=== PATIENT | female | born 1960 | race Caucasian/White ===

== ENCOUNTER 2019-10-30 22:47 | Inpatient (IN) ==
[2019-10-30] MEDS ORDERED: Ipratropium/Albuterol Neb 3 ML IH ONE (22:59)
[2019-10-30 23:22] LABS: Basophils # 0.1 K/mcL (0.0-0.2); Basophils % 0.6 %; Eosinophils # 0.5 K/mcL (0.0-0.6); Eosinophils % 3.8 %; Hematocrit 43.9 % (35.3-44.9); Hemoglobin 14.2 g/dL (11.5-15.4); Immature Granulocytes % 0.4 % (0-4); Lymphocytes # 2.2 K/mcL (0.6-4.6); Lymphocytes % 17.8 %; Mean Corpuscular HGB Conc 32.3 g/dL (31.6-35.5); Mean Corpuscular Hemoglobin 28.6 pg (28.0-33.3); Mean Corpuscular Volume 88.3 fL (83.0-100.0); Mean Platelet Volume 10.9 fL (9.4-12.4); Monocytes # 0.8 K/mcL (0.0-1.3); Monocytes % 6.7 %; Neutrophils # 8.7 K/mcL (1.6-8.9); Platelet Count 262 K/mcL (140-400); Red Blood Count 4.97 M/mcL (3.82-4.97); Red Cell Distribution Width 13.6 % (11.5-14.5); Segmented Neutrophils % 70.7 %; White Blood Count 12.2 K/mcL (4.3-11.1)
[2019-10-30 23:32] LABS: INR 1.1
[2019-10-30] MEDS ORDERED: methylPREDNISolone 125 MG/2 ML VIAL IVP ONE (23:37)
[2019-10-30 23:50] LABS: Alanine Aminotransferase 14 Units/L (7-52); Albumin 3.8 g/dL (3.5-5.7); Albumin/Globulin Ratio 1.3 (1.1-2.2); Alkaline Phosphatase 89 Units/L (34-104); Aspartate Amino Transferase 13 Units/L (13-39); BUN/Creatinine Ratio 22 (6-26); Bilirubin,Direct 0.1 mg/dL (0.0-0.2); Bilirubin,Indirect 0.3 mg/dL (0.0-1.0); Bilirubin,Total 0.4 mg/dL (0.3-1.0); Blood Urea Nitrogen 16 mg/dL (8-23); Calcium 8.9 mg/dL (8.6-10.3); Carbon Dioxide 27 mEq/L (23-29); Chloride 104 mEq/L (98-107); Globulin 2.9 g/dL (2.4-3.5); Glucose 156 mg/dL (70-105); Osmolality,Calculated 286 (280-300); Potassium 3.6 mEq/L (3.5-5.1); Sodium 136 mEq/L (136-145); Total Protein 6.7 g/dL (6.4-8.9); eGFR For African Americans > 60 (> 60); eGFR For Non-African Americans > 60 (> 60)
[2019-10-30 23:51] LABS: Troponin I < 0.03 ng/mL (< 0.04)
[2019-10-31] MEDS ORDERED: cefTRIAXone 1,000 MG in Water for inj. (sterile) 10 ML IVP ONE (00:54)
[2019-10-31] MEDS ORDERED: Albuterol 2.5 MG/3 ML NEBULIZER IH PRN (01:20)
[2019-10-31] MEDS ORDERED: Dextrose Gel 15 GM/37.5 ML TUBE PO PRN ×4 (03:13→03:15)
[2019-10-31] MEDS ORDERED: *HR* Dextrose 50 % in Water (Syg) 50 ML SYRINGE IVP PRN ×2 (03:13→03:15)
[2019-10-31] MEDS ORDERED: Naloxone 0.4 MG/ML INJ IVP PRN (03:13)
[2019-10-31] MEDS ORDERED: D5% in Water 1,000 ML IVC PRN ×2 (03:13→03:15)
[2019-10-31] MEDS ORDERED: Ondansetron ODT 4 MG TAB.RAPDIS SL PRN (03:13)
[2019-10-31] MEDS: Ipratropium/Albuterol Neb 3 ML IH SCH ×5 (03:35→22:06)
[2019-10-31 04:02] LABS: Basophils % 0.4 %; Eosinophils % 0.3 %; Hematocrit 42.2 % (35.3-44.9); Hemoglobin 13.4 g/dL (11.5-15.4); Immature Granulocytes % 0.5 % (0-4); Lymphocytes # 0.5 K/mcL (0.6-4.6); Lymphocytes % 4.5 %; Mean Corpuscular HGB Conc 31.8 g/dL (31.6-35.5); Mean Corpuscular Volume 88.3 fL (83.0-100.0); Mean Platelet Volume 11.3 fL (9.4-12.4); Monocytes # 0.1 K/mcL (0.0-1.3); Monocytes % 1.3 %; Platelet Count 266 K/mcL (140-400); Red Blood Count 4.78 M/mcL (3.82-4.97); Red Cell Distribution Width 13.7 % (11.5-14.5); White Blood Count 10.8 K/mcL (4.3-11.1)
[2019-10-31 04:22] LABS: BUN/Creatinine Ratio 19 (6-26); Blood Urea Nitrogen 15 mg/dL (8-23); Calcium 8.8 mg/dL (8.6-10.3); Carbon Dioxide 28 mEq/L (23-29); Chloride 102 mEq/L (98-107); Glucose 266 mg/dL (70-105); Magnesium 2.2 mg/dL (1.6-2.6); Osmolality,Calculated 292 (280-300); Phosphorous 3.1 mg/dL (2.7-4.5); Potassium 3.7 mEq/L (3.5-5.1); Sodium 136 mEq/L (136-145); eGFR For African Americans > 60 (> 60); eGFR For Non-African Americans > 60 (> 60)
[2019-10-31 04:24] LABS: Troponin I < 0.03 ng/mL (< 0.04)
[2019-10-31] MEDS ORDERED: Azithromycin 250 MG TABLET PO SCH (07:45)
[2019-10-31 08:22] LABS: Estimated Average Glucose 148 mg/dl
[2019-10-31] MEDS: Insulin DETEMIR 100 UNIT/ML X5UNITS SQ SCH (09:02)
[2019-10-31] MEDS: Insulin LISPRO 300 UNITS/3 ML VIAL SQ SCH ×3 (09:02→17:24)
[2019-10-31] MEDS: predniSONE 20 MG TABLET PO SCH (09:02)
[2019-10-31] MEDS: Nicotine 14 MG PATCH.TD24 TD SCH ×2 (09:03→16:03)
[2019-10-31] MEDS: levoFLOXacin 750 MG TABLET PO SCH (10:37)
[2019-10-31 11:29] LABS: Bilirubin,Urine Negative (Negative); Blood,Urine Negative (Negative); Clarity,Urine Clear (Clear); Color,Urine Yellow (Yellow); Glucose,Urine (UA) 500 mg/dL (Normal); Ketones,Urine Negative (Negative); Leukocyte Esterase,Urine Negative (Negative); Nitrite,Urine Negative (Negative); PH,Urine 6.5 pH Units (5.0-8.0); Protein,Urine Negative (Neg-Trace); Specific Gravity,Urine 1.014 (1.010-1.025); Urobilinogen,Urine Normal (Normal)
[2019-10-31] MEDS: lisinopriL 20 MG TABLET PO SCH (13:45)
[2019-10-31] MEDS ORDERED: Ibuprofen 400 MG TABLET PO PRN (16:03)
[2019-10-31] MEDS ORDERED: cefTRIAXone 2,000 MG in Water for inj. (sterile) 10 ML IVP SCH (18:00)
[2019-10-31] MEDS ORDERED: NON-FORMULARY MEDICATION 1 EACH EACH (Oxygen 2 L) NS SCH (21:00)
[2019-10-31] MEDS: Budesonide/Formoterol 160/4.5 1 PUFF INH IH SCH ×2 (22:06→23:25)
[2019-11-01] MEDS: Ipratropium/Albuterol Neb 3 ML IH SCH ×4 (03:48→22:20)
[2019-11-01] MEDS: Insulin LISPRO 300 UNITS/3 ML VIAL SQ SCH ×3 (08:28→16:30)
[2019-11-01] MEDS: Nicotine 14 MG PATCH.TD24 TD SCH (08:37)
[2019-11-01] MEDS: lisinopriL 20 MG TABLET PO SCH (08:38)
[2019-11-01] MEDS: levoFLOXacin 750 MG TABLET PO SCH (08:38)
[2019-11-01] MEDS: predniSONE 20 MG TABLET PO SCH (08:38)
[2019-11-01] MEDS: Insulin DETEMIR 100 UNIT/ML X5UNITS SQ SCH (08:39)
[2019-11-01] MEDS: Budesonide/Formoterol 160/4.5 1 PUFF INH IH SCH ×2 (10:22→22:20)
[2019-11-02] MEDS: Ipratropium/Albuterol Neb 3 ML IH SCH ×2 (04:21→10:16)
[2019-11-02 05:35] LABS: Hematocrit 39.7 % (35.3-44.9); Hemoglobin 12.5 g/dL (11.5-15.4); Mean Corpuscular HGB Conc 31.5 g/dL (31.6-35.5); Mean Corpuscular Hemoglobin 28.4 pg (28.0-33.3); Mean Corpuscular Volume 90.2 fL (83.0-100.0); Mean Platelet Volume 11.2 fL (9.4-12.4); Platelet Count 267 K/mcL (140-400); Red Cell Distribution Width 14.1 % (11.5-14.5); White Blood Count 12.5 K/mcL (4.3-11.1)
[2019-11-02 05:55] LABS: BUN/Creatinine Ratio 30 (6-26); Blood Urea Nitrogen 25 mg/dL (8-23); Calcium 8.8 mg/dL (8.6-10.3); Carbon Dioxide 26 mEq/L (23-29); Chloride 106 mEq/L (98-107); Glucose 138 mg/dL (70-105); Osmolality,Calculated 293 (280-300); Potassium 3.7 mEq/L (3.5-5.1); Sodium 138 mEq/L (136-145); eGFR For African Americans > 60 (> 60); eGFR For Non-African Americans > 60 (> 60)
[2019-11-02 06:41] VITALS: BP 113/70
[2019-11-02] MEDS: Insulin LISPRO 300 UNITS/3 ML VIAL SQ SCH (07:57)
[2019-11-02] MEDS: lisinopriL 20 MG TABLET PO SCH (08:22)
[2019-11-02] MEDS: Nicotine 14 MG PATCH.TD24 TD SCH (08:22)
[2019-11-02] MEDS: Insulin DETEMIR 100 UNIT/ML X5UNITS SQ SCH (08:22)
[2019-11-02] MEDS: levoFLOXacin 750 MG TABLET PO SCH (08:22)
[2019-11-02] MEDS: predniSONE 20 MG TABLET PO SCH (08:22)
[2019-11-02] MEDS: Budesonide/Formoterol 160/4.5 1 PUFF INH IH SCH (10:16)
== END 2019-11-02 10:42 | disposition home or self-care (01) | DRG 191 ==
LOC: EMEROOARM 22:47 → 3ANU 22:47 → SUATTDRO 10-31 01:26 → 3ANU 10-31 01:40 → SUATTDRO 11-01 13:05
PROVIDERS: ADMIT Internal Medicine; ATTEND Internal Medicine

== ENCOUNTER 2020-08-13 12:46 | Inpatient (IN) ==
[2020-08-13] MEDS ORDERED: Ondansetron 4 MG/2 ML VIAL IVP ONE (13:10)
[2020-08-13] MEDS ORDERED: Acetaminophen 325 MG TABLET PO ONE (13:10)
[2020-08-13] MEDS ORDERED: levoFLOXacin 750 MG TABLET PO ONE (13:10)
[2020-08-13] MEDS ORDERED: 0.9 % Sodium Chloride 1,000 ML IVC ONE (13:13)
[2020-08-13 14:08] LABS: Hematocrit 42.1 % (35.3-44.9); Hemoglobin 13.4 g/dL (11.5-15.4); Mean Corpuscular HGB Conc 31.8 g/dL (31.6-35.5); Mean Corpuscular Hemoglobin 27.9 pg (28.0-33.3); Mean Corpuscular Volume 87.5 fL (83.0-100.0); Mean Platelet Volume 10.6 fL (9.4-12.4); Platelet Count 267 K/mcL (140-400); Red Blood Count 4.81 M/mcL (3.82-4.97); White Blood Count 23.4 K/mcL (4.3-11.1)
[2020-08-13 14:17] LABS: INR 1.7; Prothrombin Time 18.9 Seconds (9.4-12.1)
[2020-08-13 14:19] LABS: Activated Partial Thrombo Time 31.1 Seconds (26.0-36.0)
[2020-08-13 14:33] LABS: Lymphocytes # 0.7 K/mcL (0.6-4.6); Monocytes # 0.5 K/mcL (0.0-1.3); Neutrophils # 22.2 K/mcL (1.6-8.9); Platelet Estimate Normal (Normal); Reactive Lymphocytes Present (Not Present)
[2020-08-13 14:34] LABS: Anisocytosis 2+ (Not Present)
[2020-08-13 15:01] LABS: Alanine Aminotransferase 17 Units/L (7-52); Albumin 3.8 g/dL (3.5-5.7); Alkaline Phosphatase 73 Units/L (34-104); Aspartate Amino Transferase 14 Units/L (13-39); BUN/Creatinine Ratio 13 (6-26); Bilirubin,Direct 0.3 mg/dL (0.0-0.2); Bilirubin,Indirect 0.7 mg/dL (0.0-1.0); Blood Urea Nitrogen 10 mg/dL (8-23); C-Reactive Protein > 300 mg/L (Less than 10); Calcium 9.1 mg/dL (8.6-10.3); Carbon Dioxide 27 mEq/L (23-29); Chloride 98 mEq/L (98-107); Ferritin 200 ng/mL (10-120); Globulin 3.8 g/dL (2.4-3.5); Glucose 111 mg/dL (70-105); Lactate Dehydrogenase 191 Units/L (140-271); Magnesium 1.8 mg/dL (1.6-2.6); Osmolality,Calculated 284 (280-300); Phosphorous 1.3 mg/dL (2.7-4.5); Potassium 3.3 mEq/L (3.5-5.1); Sodium 137 mEq/L (136-145); Total Protein 7.6 g/dL (6.4-8.9); Troponin I 0.03 ng/mL (< 0.04); eGFR For African Americans > 60 (> 60); eGFR For Non-African Americans > 60 (> 60)
[2020-08-13] MEDS ORDERED: Isovue-370 500 ML BOTTLE IVP ONE (15:28)
[2020-08-13] MEDS ORDERED: Ipratropium/Albuterol Neb 3 ML IH ONE (15:38)
[2020-08-13] MEDS ORDERED: Piperacillin/Tazobactam 3.375 GM in Water for inj. (sterile) 20 ML IVP ONE (16:03)
[2020-08-13] MEDS ORDERED: 0.9 % Sodium Chloride 500 ML IVC ONE (16:09)
[2020-08-13 17:41] LABS: Adenovirus Not Detected (Not Detect); Bordetella Pertussis Not Detected (Not Detect); Chlamydophila pneumoniae Not Detected (Not Detect); Coronavirus 229E Not Detected (Not Detect); Coronavirus HKU1 Not Detected (Not Detect); Coronavirus NL63 Not Detected (Not Detect); Coronavirus OC43 Not Detected (Not Detect); Human Metapneumovirus Not Detected (Not Detect); Human Rhinovirus/Enterovirus Not Detected (Not Detect); Influenza A Subtype 2009 H1 Not Detected (Not Detect); Influenza B Not Detected (Not Detect); Mycoplasma pneumoniae Not Detected (Not Detect); Parainfluenza Virus 1 Not Detected (Not Detect); Parainfluenza Virus 2 Not Detected (Not Detect); Parainfluenza Virus 3 Not Detected (Not Detect); Parainfluenza Virus 4 Not Detected (Not Detect); Respiratory Syncytial Virus Not Detected (Not Detect); SARS-CoV-2 Not Detected (Not Detect)
[2020-08-13] MEDS ORDERED: Azithromycin 500 MG in 0.9 % Sodium Chloride 250 ML IVPB SCH (21:00)
[2020-08-13] MEDS: Ipratropium/Albuterol Neb 3 ML IH SCH (22:51)
[2020-08-13] MEDS ORDERED: *HR* Dextrose 50 % in Water (Vial) 50 ML VIAL IVP PRN (23:24)
[2020-08-13] MEDS ORDERED: Dextrose Gel 15 GM/37.5 ML TUBE PO PRN ×2 (23:24)
[2020-08-13] MEDS ORDERED: D5% in Water 1,000 ML IVC PRN (23:24)
[2020-08-13] MEDS: MethylPREDNISolone 40 MG/ML VIAL IVP SCH (23:41)
[2020-08-14] MEDS: Ipratropium/Albuterol Neb 3 ML IH SCH ×4 (03:37→21:48)
[2020-08-14 04:16] LABS: Basophils % 0.1 %; Hematocrit 36.8 % (35.3-44.9); Immature Granulocytes % 0.8 % (0-4); Lymphocytes # 0.4 K/mcL (0.6-4.6); Lymphocytes % 2.1 %; Mean Corpuscular HGB Conc 31.3 g/dL (31.6-35.5); Mean Corpuscular Volume 89.5 fL (83.0-100.0); Monocytes # 0.4 K/mcL (0.0-1.3); Monocytes % 1.9 %; Neutrophils # 19.1 K/mcL (1.6-8.9); Platelet Count 252 K/mcL (140-400); Red Blood Count 4.11 M/mcL (3.82-4.97); Red Cell Distribution Width 14.4 % (11.5-14.5); Segmented Neutrophils % 95.1 %; White Blood Count 20.1 K/mcL (4.3-11.1)
[2020-08-14 04:19] LABS: Hemoglobin 11.5 g/dL (11.5-15.4)
[2020-08-14 04:36] LABS: Alanine Aminotransferase 12 Units/L (7-52); Albumin 3.2 g/dL (3.5-5.7); Alkaline Phosphatase 61 Units/L (34-104); Aspartate Amino Transferase 11 Units/L (13-39); BUN/Creatinine Ratio 19 (6-26); Bilirubin,Total 0.7 mg/dL (0.3-1.0); Blood Urea Nitrogen 13 mg/dL (8-23); Calcium 8.2 mg/dL (8.6-10.3); Carbon Dioxide 25 mEq/L (23-29); Chloride 104 mEq/L (98-107); Globulin 3.2 g/dL (2.4-3.5); Glucose 89 mg/dL (70-105); Osmolality,Calculated 284 (280-300); Potassium 3.8 mEq/L (3.5-5.1); Sodium 137 mEq/L (136-145); Total Protein 6.4 g/dL (6.4-8.9); eGFR For African Americans > 60 (> 60); eGFR For Non-African Americans > 60 (> 60)
[2020-08-14] MEDS: *HR* Heparin 5,000 UNIT/ML VIAL SQ SCH ×2 (05:19→16:42)
[2020-08-14] MEDS: MethylPREDNISolone 40 MG/ML VIAL IVP SCH ×3 (05:19→16:43)
[2020-08-14 07:21] LABS: Estimated Average Glucose 163 mg/dl; Hemoglobin A1C 7.3 %
[2020-08-14] MEDS: Insulin LISPRO 300 UNITS/3 ML VIAL SUBQ SCH ×4 (07:48→20:12)
[2020-08-14] MEDS: Tiotropium 10 INH DOSE IH SCH (07:57)
[2020-08-14] MEDS ORDERED: Roflumilast [Daliresp] 500 MCG PO SCH (09:00)
[2020-08-14] MEDS ORDERED: levoFLOXacin 500 MG/100 ML 500 MG/100 ML BAG IVPB SCH (09:00)
[2020-08-14] MEDS: lisinopriL 20 MG TABLET PO SCH (09:35)
[2020-08-14 14:10] LABS: Bilirubin,Urine Negative (Negative); Blood,Urine Small (Negative); Clarity,Urine Clear (Clear); Color,Urine Light-Yellow (Yellow); Glucose,Urine (UA) Normal (Normal); Ketones,Urine Trace mg/dL (Negative); Leukocyte Esterase,Urine Negative (Negative); Mucus,Urine Few per lpf (None-Few); Nitrite,Urine Negative (Negative); PH,Urine 6.5 pH Units (5.0-8.0); Protein,Urine Trace mg/dL (Neg-Trace); RBC,Urine 0-3 per hpf (0-3); Specific Gravity,Urine 1.014 (1.010-1.025); Squamous Epithelial Cell,Urine Few per hpf (None-Few); Urobilinogen,Urine Normal (Normal)
[2020-08-14] MEDS: Nicotine 14 MG PATCH.TD24 TD SCH (16:43)
[2020-08-14] MEDS: Insulin DETEMIR 100 UNIT/ML X5UNITS SUBQ SCH (20:12)
[2020-08-14] MEDS: Acetaminophen 325 MG TABLET PO PRN (20:17)
[2020-08-14] MEDS ORDERED: Insulin LISPRO 300 UNITS/3 ML VIAL SUBQ SCH (21:00)
[2020-08-15] MEDS: Ipratropium/Albuterol Neb 3 ML IH SCH ×4 (03:45→22:40)
[2020-08-15] MEDS: *HR* Heparin 5,000 UNIT/ML VIAL SQ SCH ×3 (05:22→21:45)
[2020-08-15] MEDS: MethylPREDNISolone 40 MG/ML VIAL IVP SCH (05:22)
[2020-08-15 07:26] LABS: Basophils % 0.1 %; Hematocrit 33.5 % (35.3-44.9); Hemoglobin 10.7 g/dL (11.5-15.4); Immature Granulocytes % 0.5 % (0-4); Lymphocytes # 0.5 K/mcL (0.6-4.6); Lymphocytes % 3.8 %; Mean Corpuscular HGB Conc 31.9 g/dL (31.6-35.5); Mean Corpuscular Hemoglobin 28.2 pg (28.0-33.3); Mean Corpuscular Volume 88.4 fL (83.0-100.0); Mean Platelet Volume 11.8 fL (9.4-12.4); Monocytes # 0.5 K/mcL (0.0-1.3); Monocytes % 4.3 %; Neutrophils # 11.3 K/mcL (1.6-8.9); Platelet Count 237 K/mcL (140-400); Red Blood Count 3.79 M/mcL (3.82-4.97); Red Cell Distribution Width 14.2 % (11.5-14.5); Segmented Neutrophils % 91.3 %; White Blood Count 12.4 K/mcL (4.3-11.1)
[2020-08-15 07:43] LABS: BUN/Creatinine Ratio 35 (6-26); Blood Urea Nitrogen 24 mg/dL (8-23); Calcium 8.6 mg/dL (8.6-10.3); Carbon Dioxide 25 mEq/L (23-29); Chloride 106 mEq/L (98-107); Glucose 208 mg/dL (70-105); Magnesium 2.4 mg/dL (1.6-2.6); Osmolality,Calculated 294 (280-300); Phosphorous 2.2 mg/dL (2.7-4.5); Potassium 3.5 mEq/L (3.5-5.1); Sodium 137 mEq/L (136-145); eGFR For African Americans > 60 (> 60); eGFR For Non-African Americans > 60 (> 60)
[2020-08-15] MEDS: Insulin LISPRO 300 UNITS/3 ML VIAL SUBQ SCH ×4 (07:44→19:53)
[2020-08-15] MEDS: Nicotine 14 MG PATCH.TD24 TD SCH (07:45)
[2020-08-15] MEDS: Insulin DETEMIR 100 UNIT/ML X5UNITS SUBQ SCH ×2 (07:45→19:56)
[2020-08-15] MEDS: levoFLOXacin 750 MG/150 ML 750 MG/150 ML BAG IVPB SCH (07:45)
[2020-08-15] MEDS: lisinopriL 20 MG TABLET PO SCH (07:45)
[2020-08-15] MEDS: Tiotropium 10 INH DOSE IH SCH (10:57)
[2020-08-15] MEDS: predniSONE 20 MG TABLET PO SCH (11:41)
[2020-08-15] MEDS: Loratadine 10 MG TABLET PO SCH (19:44)
[2020-08-15] MEDS: Acetaminophen 325 MG TABLET PO PRN (20:00)
[2020-08-16 01:55] LABS: Basophils % 0.1 %; Hematocrit 33.8 % (35.3-44.9); Hemoglobin 10.6 g/dL (11.5-15.4); Immature Granulocytes % 0.7 % (0-4); Lymphocytes # 0.7 K/mcL (0.6-4.6); Lymphocytes % 7.5 %; Mean Corpuscular HGB Conc 31.4 g/dL (31.6-35.5); Mean Corpuscular Volume 89.4 fL (83.0-100.0); Monocytes # 0.6 K/mcL (0.0-1.3); Neutrophils # 8.2 K/mcL (1.6-8.9); Platelet Count 325 K/mcL (140-400); Red Blood Count 3.78 M/mcL (3.82-4.97); Red Cell Distribution Width 14.1 % (11.5-14.5); Segmented Neutrophils % 85.7 %; White Blood Count 9.5 K/mcL (4.3-11.1)
[2020-08-16 02:00] LABS: Fibrinogen 567 mg/dL (169-393)
[2020-08-16 02:08] LABS: D-Dimer 1224 ng/mLFEU (0-500)
[2020-08-16 02:12] LABS: BUN/Creatinine Ratio 33 (6-26); Blood Urea Nitrogen 26 mg/dL (8-23); Calcium 8.2 mg/dL (8.6-10.3); Carbon Dioxide 25 mEq/L (23-29); Chloride 105 mEq/L (98-107); Glucose 268 mg/dL (70-105); Magnesium 2.3 mg/dL (1.6-2.6); Osmolality,Calculated 300 (280-300); Phosphorous 2.1 mg/dL (2.7-4.5); Potassium 3.5 mEq/L (3.5-5.1); Sodium 138 mEq/L (136-145); eGFR For African Americans > 60 (> 60); eGFR For Non-African Americans > 60 (> 60)
[2020-08-16] MEDS: Ipratropium/Albuterol Neb 3 ML IH SCH ×4 (03:42→22:25)
[2020-08-16] MEDS: *HR* Heparin 5,000 UNIT/ML VIAL SQ SCH ×3 (05:05→21:33)
[2020-08-16] MEDS: Insulin LISPRO 300 UNITS/3 ML VIAL SUBQ SCH ×4 (07:39→21:33)
[2020-08-16] MEDS: predniSONE 20 MG TABLET PO SCH (07:47)
[2020-08-16] MEDS: levoFLOXacin 750 MG/150 ML 750 MG/150 ML BAG IVPB SCH (07:47)
[2020-08-16] MEDS: lisinopriL 20 MG TABLET PO SCH (07:47)
[2020-08-16] MEDS: Insulin DETEMIR 100 UNIT/ML X5UNITS SUBQ SCH ×2 (07:48→21:31)
[2020-08-16] MEDS: Nicotine 14 MG PATCH.TD24 TD SCH (07:48)
[2020-08-16] MEDS: Tiotropium 10 INH DOSE IH SCH (10:22)
[2020-08-16] MEDS: Acetaminophen 325 MG TABLET PO PRN (19:29)
[2020-08-16] MEDS: carvediloL 6.25 MG TABLET PO SCH (21:29)
[2020-08-16] MEDS: Loratadine 10 MG TABLET PO SCH (21:30)
[2020-08-17 01:11] LABS: Basophils % 0.4 %; Eosinophils % 0.4 %; Hematocrit 35.1 % (35.3-44.9); Hemoglobin 11.1 g/dL (11.5-15.4); Immature Granulocytes % 1.8 % (0-4); Lymphocytes # 1.5 K/mcL (0.6-4.6); Lymphocytes % 18.6 %; Mean Corpuscular HGB Conc 31.6 g/dL (31.6-35.5); Mean Corpuscular Hemoglobin 27.5 pg (28.0-33.3); Mean Corpuscular Volume 86.9 fL (83.0-100.0); Mean Platelet Volume 10.5 fL (9.4-12.4); Monocytes # 0.8 K/mcL (0.0-1.3); Monocytes % 9.7 %; Neutrophils # 5.6 K/mcL (1.6-8.9); Platelet Count 334 K/mcL (140-400); Red Blood Count 4.04 M/mcL (3.82-4.97); Red Cell Distribution Width 13.9 % (11.5-14.5); Segmented Neutrophils % 69.1 %; White Blood Count 8.2 K/mcL (4.3-11.1)
[2020-08-17 01:25] LABS: BUN/Creatinine Ratio 30 (6-26); Blood Urea Nitrogen 20 mg/dL (8-23); Calcium 8.1 mg/dL (8.6-10.3); Carbon Dioxide 27 mEq/L (23-29); Chloride 107 mEq/L (98-107); Glucose 160 mg/dL (70-105); Magnesium 2.2 mg/dL (1.6-2.6); Osmolality,Calculated 298 (280-300); Potassium 3.6 mEq/L (3.5-5.1); Sodium 141 mEq/L (136-145); eGFR For African Americans > 60 (> 60); eGFR For Non-African Americans > 60 (> 60)
[2020-08-17] MEDS: Ipratropium/Albuterol Neb 3 ML IH SCH ×4 (03:41→22:35)
[2020-08-17] MEDS: *HR* Heparin 5,000 UNIT/ML VIAL SQ SCH ×3 (05:24→21:08)
[2020-08-17] MEDS: Insulin LISPRO 300 UNITS/3 ML VIAL SUBQ SCH ×4 (08:29→21:04)
[2020-08-17] MEDS: Acetaminophen 325 MG TABLET PO PRN (08:29)
[2020-08-17] MEDS: predniSONE 20 MG TABLET PO SCH (08:29)
[2020-08-17] MEDS: carvediloL 6.25 MG TABLET PO SCH ×2 (08:30→16:52)
[2020-08-17] MEDS: lisinopriL 20 MG TABLET PO SCH (08:30)
[2020-08-17] MEDS: levoFLOXacin 750 MG TABLET PO SCH (08:30)
[2020-08-17] MEDS: Nicotine 14 MG PATCH.TD24 TD SCH (08:30)
[2020-08-17] MEDS: Insulin DETEMIR 100 UNIT/ML X5UNITS SUBQ SCH ×2 (08:32→21:09)
[2020-08-17] MEDS: Tiotropium 10 INH DOSE IH SCH (10:35)
[2020-08-17] MEDS: Loratadine 10 MG TABLET PO SCH (21:08)
[2020-08-17] MEDS: Budesonide Neb 0.5 MG/2 ML IH SCH (22:35)
[2020-08-18 02:07] LABS: Basophils # 0.1 K/mcL (0.0-0.2); Basophils % 0.5 %; Eosinophils # 0.1 K/mcL (0.0-0.6); Eosinophils % 0.8 %; Hematocrit 34.3 % (35.3-44.9); Hemoglobin 11.1 g/dL (11.5-15.4); Immature Granulocytes % 4.1 % (0-4); Lymphocytes # 1.8 K/mcL (0.6-4.6); Lymphocytes % 19.1 %; Mean Corpuscular HGB Conc 32.4 g/dL (31.6-35.5); Mean Corpuscular Hemoglobin 27.7 pg (28.0-33.3); Mean Corpuscular Volume 85.5 fL (83.0-100.0); Mean Platelet Volume 10.5 fL (9.4-12.4); Monocytes # 0.8 K/mcL (0.0-1.3); Monocytes % 8.4 %; Neutrophils # 6.2 K/mcL (1.6-8.9); Platelet Count 330 K/mcL (140-400); Red Blood Count 4.01 M/mcL (3.82-4.97); Red Cell Distribution Width 13.7 % (11.5-14.5); Segmented Neutrophils % 67.1 %; White Blood Count 9.3 K/mcL (4.3-11.1)
[2020-08-18 02:31] LABS: BUN/Creatinine Ratio 34 (6-26); Blood Urea Nitrogen 24 mg/dL (8-23); Carbon Dioxide 28 mEq/L (23-29); Chloride 105 mEq/L (98-107); Glucose 172 mg/dL (70-105); Osmolality,Calculated 296 (280-300); Potassium 3.5 mEq/L (3.5-5.1); Sodium 139 mEq/L (136-145); eGFR For African Americans > 60 (> 60); eGFR For Non-African Americans > 60 (> 60)
[2020-08-18] MEDS: Ipratropium/Albuterol Neb 3 ML IH SCH ×4 (03:54→21:24)
[2020-08-18] MEDS: *HR* Heparin 5,000 UNIT/ML VIAL SQ SCH ×3 (05:24→20:11)
[2020-08-18] MEDS: Nicotine 14 MG PATCH.TD24 TD SCH (06:55)
[2020-08-18] MEDS: Insulin LISPRO 300 UNITS/3 ML VIAL SUBQ SCH ×4 (08:02→20:09)
[2020-08-18] MEDS: lisinopriL 20 MG TABLET PO SCH (08:30)
[2020-08-18] MEDS: Dexamethasone Sodium Phos/PF 10 MG/ML VIAL IVP SCH (08:30)
[2020-08-18] MEDS: levoFLOXacin 750 MG TABLET PO SCH (08:30)
[2020-08-18] MEDS: Insulin DETEMIR 100 UNIT/ML X5UNITS SUBQ SCH ×2 (08:30→20:11)
[2020-08-18] MEDS: carvediloL 6.25 MG TABLET PO SCH ×2 (08:31→16:12)
[2020-08-18] MEDS: Tiotropium 10 INH DOSE IH SCH (10:37)
[2020-08-18] MEDS: Budesonide Neb 0.5 MG/2 ML IH SCH ×2 (10:37→21:24)
[2020-08-18] MEDS: Loratadine 10 MG TABLET PO SCH (20:10)
[2020-08-19] MEDS: Ipratropium/Albuterol Neb 3 ML IH SCH ×4 (03:17→22:40)
[2020-08-19 05:05] LABS: Hemoglobin 11.2 g/dL (11.5-15.4); Mean Corpuscular Hemoglobin 27.4 pg (28.0-33.3); Mean Corpuscular Volume 85.6 fL (83.0-100.0); Mean Platelet Volume 10.5 fL (9.4-12.4); Platelet Count 332 K/mcL (140-400); Red Blood Count 4.09 M/mcL (3.82-4.97); Red Cell Distribution Width 13.8 % (11.5-14.5); White Blood Count 11.6 K/mcL (4.3-11.1)
[2020-08-19 05:22] LABS: BUN/Creatinine Ratio 33 (6-26); Blood Urea Nitrogen 23 mg/dL (8-23); Calcium 8.3 mg/dL (8.6-10.3); Carbon Dioxide 28 mEq/L (23-29); Chloride 106 mEq/L (98-107); Glucose 130 mg/dL (70-105); Osmolality,Calculated 293 (280-300); Potassium 3.9 mEq/L (3.5-5.1); Sodium 139 mEq/L (136-145); eGFR For African Americans > 60 (> 60); eGFR For Non-African Americans > 60 (> 60)
[2020-08-19 05:28] LABS: Lymphocytes # 3.3 K/mcL (0.6-4.6); Monocytes # 0.9 K/mcL (0.0-1.3); Neutrophils # 7.4 K/mcL (1.6-8.9)
[2020-08-19 05:29] LABS: Anisocytosis 1+ (Not Present); Platelet Estimate Normal (Normal)
[2020-08-19] MEDS: *HR* Heparin 5,000 UNIT/ML VIAL SQ SCH ×3 (05:52→20:56)
[2020-08-19] MEDS: Insulin LISPRO 300 UNITS/3 ML VIAL SUBQ SCH ×4 (07:55→20:56)
[2020-08-19] MEDS: Nicotine 14 MG PATCH.TD24 TD SCH (07:56)
[2020-08-19] MEDS: Dexamethasone Sodium Phos/PF 10 MG/ML VIAL IVP SCH (08:35)
[2020-08-19] MEDS: levoFLOXacin 750 MG TABLET PO SCH (08:35)
[2020-08-19] MEDS: lisinopriL 20 MG TABLET PO SCH (08:36)
[2020-08-19] MEDS: Insulin DETEMIR 100 UNIT/ML X5UNITS SUBQ SCH ×2 (08:36→20:56)
[2020-08-19] MEDS: carvediloL 6.25 MG TABLET PO SCH ×2 (08:36→16:31)
[2020-08-19] MEDS: Budesonide Neb 0.5 MG/2 ML IH SCH ×2 (10:38→22:40)
[2020-08-19] MEDS: Tiotropium 10 INH DOSE IH SCH (10:38)
[2020-08-19] MEDS: Loratadine 10 MG TABLET PO SCH (20:56)
[2020-08-20 02:43] LABS: Basophils # 0.1 K/mcL (0.0-0.2); Basophils % 0.6 %; Eosinophils # 0.1 K/mcL (0.0-0.6); Hematocrit 36.5 % (35.3-44.9); Hemoglobin 11.6 g/dL (11.5-15.4); Immature Granulocytes % 7.1 % (0-4); Lymphocytes # 2.2 K/mcL (0.6-4.6); Lymphocytes % 18.9 %; Mean Corpuscular HGB Conc 31.8 g/dL (31.6-35.5); Mean Corpuscular Hemoglobin 27.3 pg (28.0-33.3); Mean Corpuscular Volume 85.9 fL (83.0-100.0); Mean Platelet Volume 10.3 fL (9.4-12.4); Monocytes # 0.9 K/mcL (0.0-1.3); Monocytes % 7.8 %; Neutrophils # 7.6 K/mcL (1.6-8.9); Platelet Count 346 K/mcL (140-400); Red Blood Count 4.25 M/mcL (3.82-4.97); Red Cell Distribution Width 14.1 % (11.5-14.5); Segmented Neutrophils % 64.6 %; White Blood Count 11.8 K/mcL (4.3-11.1)
[2020-08-20 03:02] LABS: BUN/Creatinine Ratio 31 (6-26); Blood Urea Nitrogen 22 mg/dL (8-23); Calcium 8.5 mg/dL (8.6-10.3); Carbon Dioxide 30 mEq/L (23-29); Chloride 104 mEq/L (98-107); Glucose 145 mg/dL (70-105); Magnesium 2.1 mg/dL (1.6-2.6); Osmolality,Calculated 294 (280-300); Potassium 3.6 mEq/L (3.5-5.1); Sodium 139 mEq/L (136-145); eGFR For African Americans > 60 (> 60); eGFR For Non-African Americans > 60 (> 60)
[2020-08-20 03:17] LABS: Anisocytosis 1+ (Not Present); Platelet Estimate Normal (Normal)
[2020-08-20] MEDS: Ipratropium/Albuterol Neb 3 ML IH SCH ×4 (04:06→21:56)
[2020-08-20] MEDS: *HR* Heparin 5,000 UNIT/ML VIAL SQ SCH ×3 (05:21→20:10)
[2020-08-20] MEDS: Insulin LISPRO 300 UNITS/3 ML VIAL SUBQ SCH ×4 (07:35→20:10)
[2020-08-20] MEDS: levoFLOXacin 750 MG TABLET PO SCH (07:40)
[2020-08-20] MEDS: Insulin DETEMIR 100 UNIT/ML X5UNITS SUBQ SCH ×2 (07:40→20:10)
[2020-08-20] MEDS: lisinopriL 20 MG TABLET PO SCH (07:40)
[2020-08-20] MEDS: carvediloL 6.25 MG TABLET PO SCH ×2 (07:40→16:31)
[2020-08-20] MEDS: Nicotine 14 MG PATCH.TD24 TD SCH (08:38)
[2020-08-20] MEDS: Dexamethasone Sodium Phos/PF 10 MG/ML VIAL IVP SCH (10:22)
[2020-08-20] MEDS: Budesonide Neb 0.5 MG/2 ML IH SCH ×2 (10:45→21:56)
[2020-08-20] MEDS: Tiotropium 10 INH DOSE IH SCH (10:47)
[2020-08-20] MEDS: Loratadine 10 MG TABLET PO SCH (20:10)
[2020-08-21] MEDS: Ipratropium/Albuterol Neb 3 ML IH SCH ×4 (03:45→22:23)
[2020-08-21] MEDS: *HR* Heparin 5,000 UNIT/ML VIAL SQ SCH ×3 (05:16→21:15)
[2020-08-21 05:39] LABS: Hematocrit 37.4 % (35.3-44.9); Hemoglobin 11.8 g/dL (11.5-15.4); Mean Corpuscular HGB Conc 31.6 g/dL (31.6-35.5); Mean Corpuscular Volume 88.8 fL (83.0-100.0); Mean Platelet Volume 10.6 fL (9.4-12.4); Platelet Count 357 K/mcL (140-400); Red Blood Count 4.21 M/mcL (3.82-4.97); Red Cell Distribution Width 14.5 % (11.5-14.5); White Blood Count 13.8 K/mcL (4.3-11.1)
[2020-08-21 05:42] LABS: BUN/Creatinine Ratio 29 (6-26); Blood Urea Nitrogen 25 mg/dL (8-23); Calcium 8.7 mg/dL (8.6-10.3); Carbon Dioxide 31 mEq/L (23-29); Chloride 100 mEq/L (98-107); Glucose 195 mg/dL (70-105); Magnesium 2.1 mg/dL (1.6-2.6); Osmolality,Calculated 296 (280-300); Potassium 3.6 mEq/L (3.5-5.1); Sodium 138 mEq/L (136-145); eGFR For African Americans > 60 (> 60); eGFR For Non-African Americans > 60 (> 60)
[2020-08-21] MEDS: Insulin LISPRO 300 UNITS/3 ML VIAL SUBQ SCH ×4 (07:46→21:22)
[2020-08-21] MEDS: Insulin DETEMIR 100 UNIT/ML X5UNITS SUBQ SCH ×2 (07:52→21:15)
[2020-08-21] MEDS: levoFLOXacin 750 MG TABLET PO SCH (07:52)
[2020-08-21] MEDS: carvediloL 6.25 MG TABLET PO SCH ×2 (07:52→17:35)
[2020-08-21] MEDS: lisinopriL 20 MG TABLET PO SCH (07:52)
[2020-08-21] MEDS: Nicotine 14 MG PATCH.TD24 TD SCH (07:53)
[2020-08-21] MEDS: Dexamethasone Sodium Phos/PF 10 MG/ML VIAL IVP SCH (08:49)
[2020-08-21] MEDS: Tiotropium 10 INH DOSE IH SCH (10:41)
[2020-08-21] MEDS: Budesonide Neb 0.5 MG/2 ML IH SCH ×2 (10:41→22:23)
[2020-08-21 11:52] LABS: Lymphocytes # 1.1 K/mcL (0.6-4.6); Monocytes # 0.3 K/mcL (0.0-1.3); Neutrophils # 12.1 K/mcL (1.6-8.9); Platelet Estimate Normal (Normal)
[2020-08-21] MEDS: Loratadine 10 MG TABLET PO SCH (21:15)
[2020-08-22] MEDS: Ipratropium/Albuterol Neb 3 ML IH SCH ×2 (04:37→09:57)
[2020-08-22] MEDS: *HR* Heparin 5,000 UNIT/ML VIAL SQ SCH (05:38)
[2020-08-22 06:46] VITALS: BP 117/72
[2020-08-22 07:55] LABS: Basophils # 0.1 K/mcL (0.0-0.2); Basophils % 0.8 %; Eosinophils # 0.1 K/mcL (0.0-0.6); Eosinophils % 0.7 %; Hematocrit 41.4 % (35.3-44.9); Hemoglobin 12.4 g/dL (11.5-15.4); Immature Granulocytes % 4.9 % (0-4); Lymphocytes # 3.5 K/mcL (0.6-4.6); Lymphocytes % 18.6 %; Mean Corpuscular Hemoglobin 27.2 pg (28.0-33.3); Mean Corpuscular Volume 90.8 fL (83.0-100.0); Mean Platelet Volume 10.6 fL (9.4-12.4); Monocytes # 1.2 K/mcL (0.0-1.3); Monocytes % 6.6 %; Neutrophils # 12.8 K/mcL (1.6-8.9); Platelet Count 385 K/mcL (140-400); Red Blood Count 4.56 M/mcL (3.82-4.97); Red Cell Distribution Width 14.7 % (11.5-14.5); Segmented Neutrophils % 68.4 %; White Blood Count 18.7 K/mcL (4.3-11.1)
[2020-08-22] MEDS: carvediloL 6.25 MG TABLET PO SCH (08:00)
[2020-08-22] MEDS: Insulin DETEMIR 100 UNIT/ML X5UNITS SUBQ SCH (08:01)
[2020-08-22] MEDS: Nicotine 14 MG PATCH.TD24 TD SCH (08:01)
[2020-08-22] MEDS: lisinopriL 20 MG TABLET PO SCH (08:01)
[2020-08-22] MEDS: Insulin LISPRO 300 UNITS/3 ML VIAL SUBQ SCH (08:02)
[2020-08-22 08:18] LABS: BUN/Creatinine Ratio 37 (6-26); Blood Urea Nitrogen 26 mg/dL (8-23); Calcium 8.8 mg/dL (8.6-10.3); Carbon Dioxide 29 mEq/L (23-29); Chloride 101 mEq/L (98-107); Glucose 131 mg/dL (70-105); Magnesium 2.2 mg/dL (1.6-2.6); Osmolality,Calculated 293 (280-300); Sodium 138 mEq/L (136-145); eGFR For African Americans > 60 (> 60); eGFR For Non-African Americans > 60 (> 60)
[2020-08-22] MEDS ORDERED: Pantoprazole 40 MG VIAL IVP SCH (09:00)
[2020-08-22] MEDS ORDERED: dexAMETHasone 4 MG TABLET PO SCH (09:00)
[2020-08-22] MEDS: Budesonide Neb 0.5 MG/2 ML IH SCH (09:57)
[2020-08-22] MEDS: Tiotropium 10 INH DOSE IH SCH (09:58)
== END 2020-08-22 12:11 | disposition home or self-care (01) | DRG 871 ==
LOC: 2ANU 12:46 → EMEROOARM 12:46 → 2ANU 19:23 → SUATTDRO 08-14 15:35 → 2ANU 08-17 17:24
PROVIDERS: ADMIT Family Medicine; ATTEND Pharmacist